=== PATIENT | male | born 1945 | race Caucasian/White ===

== ENCOUNTER 2016-08-03 13:24 | Emergency (ER) | payer OTHER ==
--- NOTE | 2016-08-03 13:56 | ED ---
General Adult HPI - General Chief complaint: Head Injury Stated complaint: head injury-[facility] Time Seen by Provider: 08/03/16 13:45 Source: patient, RN notes reviewed Mode of arrival: wheelchair Limitations: no limitations - History of Present Illness Initial comments: Is a 71-year-old male who presents to the emergency department stating he is on Coumadin for atrial fibrillation. Patient states he was working and a 40 pound ceiling access panel fell onto his head from about 1 foot above his head. Patient states he was not dazed did not lose consciousness but he complains of a headache and he feels as though his vision is a little more blurred when trying to reach something. Patient denies any neck pain patient denies numbness weakness per patient denies any other injury. Patient denies being lightheaded or dizzy. - Related Data Home Medications Medication Instructions Recorded Confirmed Amiodarone [Cordarone] 200 mg PO BID 08/03/16 08/03/16 Warfarin [Coumadin] 1 mg PO HS 08/03/16 08/03/16 Allergies Allergy/AdvReac Type Severity Reaction Status Date / Time codeine Allergy Rash/Hives Verified 08/03/16 14:00 Review of Systems ROS Statement: Those systems with pertinent positive or pertinent negative responses have been documented in the HPI. ROS Other: All systems not noted in ROS Statement are negative. Past Medical History Past Medical History: Atrial Flutter, Hypertension History of Any Multi-Drug Resistant Organisms: None Reported Past Surgical History: No Surgical Hx Reported Past Psychological History: No Psychological Hx Reported Smoking Status: Current every day smoker Past Alcohol Use History: Occasional Past Drug Use History: None Reported General Exam - General Exam Comments Initial Comments: GENERAL: Patient is well-developed and well-nourished. Patient is nontoxic and well- hydrated and is in mild distress. ENT: Neck is soft and supple. No significant lymphadenopathy is noted. Oropharynx is clear. Moist mucous membranes. Neck has full range of motion without eliciting any pain. Patient has a small hematoma on the lateral left forehead. EYES: The sclera were anicteric and conjunctiva were pink and moist. Extraocular movements were intact and pupils were equal round and reactive to light. Eyelids were unremarkable. PULMONARY: Unlabored respirations. Good breath sounds bilaterally. No audible rales rhonchi or wheezing was noted. CARDIOVASCULAR: There is a regular rate and rhythm without any murmurs gallops or rubs. ABDOMEN: Soft and nontender with normal bowel sounds. No palpable organomegaly was noted. There is no palpable pulsatile mass. SKIN: Skin is clear with no lesions or rashes and otherwise unremarkable. NEUROLOGIC: Patient is alert and oriented x3. Cranial nerves II through XII are grossly intact. Motor and sensory are also intact. Normal speech, volume and content. Symmetrical smile. MUSCULOSKELETAL: Normal extremities with adequate strength and full range of motion. LYMPHATICS: No significant lymphadenopathy is noted PSYCHIATRIC: Normal psychiatric evaluation. Normal interpersonal interactions appears functionally intact in deals appropriately with others. No signs of depression. No signs of anxiety. Limitations: no limitations Course Vital Signs 08/03/16 13:41 Temperature 98.6 F Pulse Rate 74 Respiratory 20 Rate Blood Pressure 129/63 O2 Sat by Pulse 93 L Oximetry Medical Decision Making - Medical Decision Making Patient's CT of the head and neck were normal. Patient was initially complaining of difficulty seeing out of the left eye and then when I went back into reevaluate him he stated that he figured it out he is missing the lens in his glasses on the left. Disposition Clinical Impression: Hematoma of scalp Disposition: HOME SELF-CARE Condition: Good Instructions: Head Injury (ED) Referrals: Nonstaff,Physician [Primary Care Provider] - 1-2 days Time of Disposition: 15:00
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
[2016-08-03 15:15] VITALS: BP 156/73; PULSE 78; RESP 14; TEMP 98.2
== END 2016-08-03 15:16 | disposition home or self-care (01) ==
LOC: EC 13:24
DX: S00.03XA Contusion of scalp, initial encounter (principal); I48.91 Unspecified atrial fibrillation; Z79.899 Other long term (current) drug therapy; Z88.5 Allergy status to narcotic agent; F17.200 Nicotine dependence, unspecified, uncomplicated; W20.8XXA Other cause of strike by thrown, projected or falling object, initial encounter; Z79.01 Long term (current) use of anticoagulants; Y99.0 Civilian activity done for income or pay
CPT/HCPCS: 70450; 72125; 99283